=== PATIENT | female | born 1985 | race Two or more races ===

== ENCOUNTER 2022-10-27 12:31 | Emergency (ER) | payer MEDICAID ==
[~2022-10-27] VITALS: Ht 162.6 cm; Wt 102.3 kg
[2022-10-27 14:05] VITALS: BP 132/70
[2022-10-27] MEDS ORDERED: CEPH-510 PO (14:08)
== END 2022-10-27 14:30 | disposition home or self-care (01) ==
LOC: ER 12:31
DX: Z48.89 Encounter for other specified surgical aftercare (principal); Z90.710 Acquired absence of both cervix and uterus